=== PATIENT | female | born 1955 | race Caucasian/White ===

== ENCOUNTER 2016-07-03 10:32 | Emergency (ER) ==
[2016-07-03 10:43] VITALS: BP 160/95; TEMP 98.2; BMI 26.5
--- NOTE | 2016-07-03 10:49 | ED.PDOC ---
General ED Provider: Dr. SINDHU AKBAR Chief Complaint: Extremity Pain/Injury Stated Complaint: right axilla pain/abscess Time Seen by Physician: 10:33 (axillary abscess none pointing ) Mode of Arrival: Walk-In Information Source: Patient Exam Limitations: No limitations Primary Care Provider: SINDHU FALL Nursing and Triage Documentation Reviewed and Agree: Yes Skin Complaint Exam - Skin/Soft Tissue Complaint/Exam Symptoms Are: Still present Timing: Constant Initial Severity: Mild Current Severity: Mild Character: Reports: Redness, Swelling, Painful. Denies: Raised Aggravating: Reports: None Alleviating: Reports: None Associated Signs and Symptoms: Denies: Fever, Chills, Itching, Drainage, Bruising, Tenderness, Red streaks, Joint swelling Related History: Denies: Recent trauma, Foreign body, Insect bite/sting, Recent Med change, Prior MRSA/VRE, Recent inpatient, Recent travel, Immunocompromised Related Surgical History: Reports: None Recent Exposure to Others w/Similar Symptoms: No Skin Findings: Present: Pustules Differential Diagnoses: Abscess, MRSA Review of Systems - Review Of Systems Constitutional: Reports: No symptoms Eyes: Reports: No symptoms Ears, Nose, Mouth, Throat: Reports: No symptoms Respiratory: Reports: No symptoms Cardiac: Reports: No symptoms GI: Reports: No symptoms : Reports: No symptoms Musculoskeletal: Reports: No symptoms Skin: Reports: Other (pustule axilla right) Neurological: Reports: No symptoms Endocrine: Reports: No symptoms Hematologic/Lymphatic: Reports: No symptoms All Other Systems: Reviewed and Negative Past Medical History - Past Medical History Previously Healthy: Yes Endocrine: Reports: None Cardiovascular: Reports: None Respiratory: Reports: None Hematological: Reports: None Gastrointestinal: Reports: None Genitourinary: Reports: None Neuro/Psych: Reports: None Musculoskeletal: Reports: None Cancer: Reports: Breast Last Menstrual Period: 7 years ago - Surgical History General Surgical History: Reports: Other (breast) - Family History Family History: Reports: Unknown - Social History Smoking Status: Current every day smoker Hx Substance Use: No Alcohol Screening: None - Immunizations Tetanus Shot up to Date: No Physical Exam - Physical Exam Appearance: Well-appearing, No pain distress, Well-nourished Eyes: CINDY, EOMI, Conjunctiva clear ENT: Ears normal, Nose normal, Oropharynx normal Respiratory: Airway patent, Breath sounds clear, Breath sounds equal, Respirations nonlabored Cardiovascular: RRR, Pulses normal, No rub, No murmur GI/: Soft, Nontender, No masses, Bowel sounds normal, No Organomegaly Musculoskeletal: Normal strength, ROM intact, No edema, No calf tenderness Skin: Warm, Dry (abscess right axilla 1 cm none pointing) Neurological: Sensation intact, Motor intact, Reflexes intact, Cranial nerves intact, Alert, Oriented Psychiatric: Affect appropriate, Mood appropriate Critical Care Note - Critical Care Note Total Time (mins): 0 Course - Course Vital Signs: Temp Pulse Resp BP Pulse Ox 07/03/16 10:33 98.2 F 98 H 18 160/95 H 97 Departure - Departure Time of Disposition: 10:50 (placed on cipro and pain meds 2 photos submitted ) Disposition: HOME SELF-CARE Discharge Problem: Abscess Instructions: Abscess (ED), MRSA (Methicillin Resistant Staphylococcus Aureus) (ED) Condition: Good Pt referred to PMD for follow-up: No Additional Instructions: Please call your Family Physician as soon as possible to schedule a follow-up appointment. you have an abscess in your arm pit this thing is not ready to be cut out if worse like a huge pimple you must see your doctor to have it cut out. see your doctor as soon as you can Allergies/Adverse Reactions: Allergies iodine Adverse Reaction (Verified 05/08/13 07:50) Penicillins Adverse Reaction (Verified 05/08/13 07:50) sulfadiazine sodium Adverse Reaction (Verified 05/08/13 07:50) Home Medications: Ambulatory Orders Buspirone HCl [Buspar] 5 mg PO DAILY 05/08/13 Disposition Discussed With: Patient
== END 2016-07-03 10:55 | disposition home or self-care (01) ==
LOC: ED 10:32
DX: L02.411 Cutaneous abscess of right axilla (principal); F17.210 Nicotine dependence, cigarettes, uncomplicated
CPT/HCPCS: 99282

== ENCOUNTER 2017-11-12 13:21 | Emergency (ER) ==
[2017-11-12 13:35] VITALS: BP 184/106; TEMP 98; BMI 35.7
--- NOTE | 2017-11-12 14:26 | ED.PDOC ---
General ED Provider: Dr. CALI ELDER Chief Complaint: Elbow Pain/Injury Stated Complaint: Severe pain medial aspect Lt Elbow. Unaware of injury. Time Seen by Physician: 14:25 Mode of Arrival: Walk-In Information Source: Patient Exam Limitations: No limitations Primary Care Provider: SINDHU FALL Nursing and Triage Documentation Reviewed and Agree: Yes Reviewed sepsis parameters & appropriate labs ordered?: Yes System Inflammatory Response Syndrome: Not Applicable Sepsis Protocol: For patient's 13 years and over: Temp is 96.8 and below OR 101 and greater Pulse >90 BPM Resp >20/minute Acutely Altered Mental Status Are patient's symptoms suggestive of a new infection, such as: -Pneumonia -Skin, Soft Tissue -Endocarditis -UTI -Bone, Joint Infection -Implantable Device -Acute Abdominal Infection -Wound Infection -Meningitis -Blood Stream Catheter Infection -Unknown Musculoskeletal Complaint Exam - Elbow Pain Complaint/Exam Mechanism of Injury: Reports: No known trauma Symptoms Are: Still present Onset of Pain: Reports: Immediate Initial Severity: Severe Current Severity: Moderate Location: Reports: Diffuse, Radiating Character: Reports: Dull, Aching, Throbbing Alleviating: Reports: Rest, Ice Aggravating: Reports: Movement, Twisting, Pulling Associated Signs and Symptoms: Reports: Swelling Related Surgical History: Reports: None Elbow Findings: Present: Swelling (Markedly painful to exam, decreased ROM to extension, pronation and suppination) Tenderness: Present: Medial Condyle Limited Range of Motion: Present: Extension, Pronation, Supination Differential Diagnoses: Other (Epicondylitis) Review of Systems - Review Of Systems Constitutional: Reports: No symptoms Eyes: Reports: No symptoms Ears, Nose, Mouth, Throat: Reports: No symptoms Respiratory: Reports: No symptoms Cardiac: Reports: No symptoms GI: Reports: No symptoms : Reports: No symptoms Musculoskeletal: Reports: Joint pain, Joint swelling Skin: Reports: No symptoms Neurological: Reports: No symptoms Endocrine: Reports: No symptoms Hematologic/Lymphatic: Reports: No symptoms All Other Systems: Reviewed and Negative Past Medical History - Past Medical History Previously Healthy: Yes Endocrine: Reports: None Cardiovascular: Reports: None Respiratory: Reports: None Hematological: Reports: None Gastrointestinal: Reports: None Genitourinary: Reports: None Neuro/Psych: Reports: None Musculoskeletal: Reports: Joint Pain Cancer: Reports: Breast Last Menstrual Period: post menopausal - Surgical History General Surgical History: Reports: Other (breast) - Family History Family History: Reports: Unknown - Social History Smoking Status: Current every day smoker, Heavy tobacco smoker Hx Substance Use: No Alcohol Screening: None Physical Exam - Physical Exam Appearance: Well-appearing, Well-nourished Ill-appearing: None Pain Distress: Moderate Eyes: CINDY, EOMI, Conjunctiva clear ENT: Ears normal, Nose normal, Oropharynx normal Respiratory: Airway patent, Breath sounds clear, Breath sounds equal, Respirations nonlabored Cardiovascular: RRR, Pulses normal, No rub, No murmur GI/: Soft, Nontender, No masses, Bowel sounds normal, No Organomegaly Musculoskeletal: Normal strength (Tenderness medial epicondyle and adjacent surrounding tissue), ROM intact, No edema, No calf tenderness Skin: Warm, Dry, Normal color Neurological: Sensation intact, Motor intact, Reflexes intact, Cranial nerves intact, Alert, Oriented Psychiatric: Affect appropriate, Mood appropriate Critical Care Note - Critical Care Note Total Time (mins): 0 Course - Course Orders, Labs, Meds: Orders Category Date Time Status Ketorolac Tromethamine [Toradol] MEDS 11/12/17 14:33 Discontinued 30 mg IM ONCE STA ELBOW, LEFT MIN 3 VIEWS Stat RADS 11/12/17 14:32 Taken Medications Discontinued Medications Generic Name Dose Route Start Last Admin Trade Name Freq PRN Reason Stop Dose Admin Ketorolac Tromethamine 30 mg 11/12/17 14:33 11/12/17 14:47 Toradol IM 11/12/17 14:34 30 mg ONCE STA Administration Vital Signs: Temp Pulse Resp BP Pulse Ox 11/12/17 13:22 98.0 F 101 H 20 184/106 H 95 Departure - Departure Time of Disposition: 15:50 Disposition: HOME SELF-CARE Discharge Problem: Medial epicondylitis of left elbow Instructions: Tennis Elbow (ED) Condition: Good Pt referred to PMD for follow-up: Yes IPMP verified?: No Additional Instructions: Obtain brace for lt elbow/ Tennis or Golf Elbow Splint Ice, elevate avoid aggravating activities' Take meds as suggested;;Toradol 10 mg take 1 tablet every 6 hours as needed( no more that total of 5 days of therapy) Follow PCP in next week Allergies/Adverse Reactions: Allergies iodine Adverse Reaction (Verified 11/12/17 13:28) Penicillins Adverse Reaction (Verified 11/12/17 13:28) sulfadiazine sodium Adverse Reaction (Verified 11/12/17 13:28) Home Medications: Ambulatory Orders Ketorolac Tromethamine [Toradol] 10 mg PO Q6H PRN #20 tablet 11/12/17 Disposition Discussed With: Patient
[2017-11-12] MEDS ORDERED: TORADOL IM STA (14:33)
--- NOTE | 2017-11-13 07:48 | DI ---
EXAM: LEFT ELBOW HISTORY: Elbow pain FINDINGS: Left elbow three-view. Bone and joint structures appear normal. There is no joint disloc ation or effusion. No fracture is identified. Bone density and soft tissues are within normal limit s. IMPRESSION: Findings within normal limits.
== END 2017-11-12 16:10 | disposition home or self-care (01) ==
LOC: ED 13:21
DX: M77.02 Medial epicondylitis, left elbow (principal); F17.210 Nicotine dependence, cigarettes, uncomplicated
CPT/HCPCS: 96372; 99282

== ENCOUNTER 2018-08-15 08:56 | Outpatient (CLI) | payer OTHER ==
--- NOTE | 2018-08-15 09:29 | DI ---
EXAM: CHEST FRONTAL AND LATERAL VIEWS HISTORY: Shortness of breath. COMPARISON: 09/04/2010 FINDINGS: Heart size remains within normal limits. There is diffuse, chronic appearing interstitial accentuation. Lungs are hyperinflated and there is relative lucency of the lung zones suggesting pu lmonary emphysema. There are scattered calcifications suggesting old granulomatous disease. No acut e infiltrates are seen. No vascular congestion. There is no consolidation, visible pleural fluid or pneumothorax. Bones reveal no acute fracture. IMPRESSION: Cannot exclude a component chronic obstructive pulmonary disease, correlate clinically No acute cardiopulmonary process.
== END 2018-08-15 08:57 | disposition home or self-care (01) ==
LOC: RAD 08:56
PROVIDERS: ATTEND Family Medicine
DX: R09.89 Other specified symptoms and signs involving the circulatory and respiratory systems (principal)

== ENCOUNTER 2018-11-26 12:30 | Emergency (ER) ==
[2018-11-26 12:34] VITALS: BP 183/120; TEMP 98; BMI 38.2
--- NOTE | 2018-11-26 13:43 | US ---
EXAM: Right lower extremity venous Doppler History: Right lower extremity pain and edema. Technique: Multiple sonographic images through the right lower extremity were obtained. Color duple x Doppler was used to interrogate vascular flow. Findings: The right common femoral, greater saphenous, profunda, superficial femoral, popliteal, per morelos, posterior tibial and anterior tibial veins demonstrate spontaneous flow with normal compressio n and normal augmentation. Impression: No sonographic evidence for deep venous thrombosis
--- NOTE | 2018-11-26 13:58 | CT ---
EXAM: CT of the right knee without contrast History: Lateral and posterior right knee pain. Technique: Multiplanar CT images through the right knee were obtained without the administration of IV contrast Findings: Osteopenia. No acute fracture or dislocation. Mild tricompartmental joint space narrowin g with tiny osteophytes. Small knee joint effusion. No Lorenzo's cyst. No abnormal calcifications or radiopaque foreign bodies. No soft tissue hematomas. Impression: 1. No acute osseous abnormality. 2. Mild tricompartmental arthritis. 3. Small knee joint effusion. 4. Osteopenia
--- NOTE | 2018-11-26 14:05 | ED.PDOC ---
General ED Provider: Dr. SINDHU AKBAR Chief Complaint: Knee Pain/Injury Stated Complaint: Right knee pain extended to back of the knee with no stated injury Time Seen by Physician: 12:30 Mode of Arrival: Walk-In Information Source: Patient Exam Limitations: No limitations Primary Care Provider: TRUMAN DUMONT Nursing and Triage Documentation Reviewed and Agree: Yes Does patient meet sepsis criteria?: No System Inflammatory Response Syndrome: Not Applicable Sepsis Protocol: For patient's 13 years and over: Temp is 96.8 and below OR 101 and greater Pulse >90 BPM Resp >20/minute Acutely Altered Mental Status Are patient's symptoms suggestive of a new infection, such as: -Pneumonia -Skin, Soft Tissue -Endocarditis -UTI -Bone, Joint Infection -Implantable Device -Acute Abdominal Infection -Wound Infection -Meningitis -Blood Stream Catheter Infection -Unknown Musculoskeletal Complaint Exam - Knee Pain Complaint/Exam Mechanism of Injury: Reports: No known trauma Onset/Duration: chronic issue worsening today Symptoms Are: Still present Onset of Pain: Reports: Hours Initial Severity: Moderate Current Severity: Moderate Location: Reports: Discrete (behind the right knee) Character: Reports: Aching, Spasmodic Alleviating: Reports: Rest, Position Aggravating: Reports: Movement Associated Signs and Symptoms: Denies: Swelling, Redness, Bruising, Fever, Weakness, Numbness, Tingling Able to Bear Weight: Yes Related History: Reports: Similar episode Septic Arthritis Risk Factors: Reports: Extremes of age Gout Risk Factors: Reports: >40 years old Knee Findings: Absent: Swelling, Ecchymosis, Abnormal contour, Rotation, Ligamentous instability, Laceration, Erythema, Warmth, Blisters, Other joint pain, Foreign body, Tenderness, Limited range of motion, Effusion Tenderness: Present: Pre-patellar Mikhail Test Positive: No Jamaal Test Positive: No Limited Range of Motion: Present: Active Differential Diagnoses: DVT, Closed Fracture, Internal Derangement, Sprain, Strain Review of Systems - Review Of Systems Constitutional: Reports: No symptoms Eyes: Reports: No symptoms Ears, Nose, Mouth, Throat: Reports: No symptoms Respiratory: Reports: No symptoms Cardiac: Reports: No symptoms GI: Reports: No symptoms : Reports: No symptoms Musculoskeletal: Reports: Joint pain (right knee) Skin: Reports: No symptoms Neurological: Reports: No symptoms Endocrine: Reports: No symptoms Hematologic/Lymphatic: Reports: No symptoms All Other Systems: Reviewed and Negative Past Medical History - Past Medical History Previously Healthy: Yes Endocrine: Reports: None Cardiovascular: Reports: None Respiratory: Reports: None Hematological: Reports: None Gastrointestinal: Reports: None Genitourinary: Reports: None Neuro/Psych: Reports: None Musculoskeletal: Reports: Joint Pain Cancer: Reports: Breast Last Menstrual Period: no - Surgical History General Surgical History: Reports: Other (breast) - Family History Family History: Reports: Unknown - Social History Smoking Status: Current every day smoker, Heavy tobacco smoker Hx Substance Use: No Alcohol Screening: None - Immunizations Tetanus Shot up to Date: No Physical Exam - Physical Exam Appearance: Well-appearing, No pain distress, Well-nourished Eyes: CINDY, EOMI, Conjunctiva clear ENT: Ears normal, Nose normal, Oropharynx normal Respiratory: Airway patent, Breath sounds clear, Breath sounds equal, Respirations nonlabored Cardiovascular: RRR, Pulses normal, No rub, No murmur GI/: Soft, Nontender, No masses, Bowel sounds normal, No Organomegaly Musculoskeletal: Limited ROM (right knee) Skin: Warm, Dry, Normal color Neurological: Sensation intact, Motor intact, Reflexes intact, Cranial nerves intact, Alert, Oriented Psychiatric: Affect appropriate, Mood appropriate Interpretation - Radiology Interpretation Radiology Interpretation By: Radiologist Radiology Results: No acute changes (negative DVT) Critical Care Note - Critical Care Note Total Time (mins): 0 Course - Course Orders, Labs, Meds: Lab Review 11/26/18 12:57 Uric Acid 4.67 Orders Category Date Time Status URIC ACID Stat LAB 11/26/18 12:[address] KNEE RIGHT WITHOUT CONTRAST Stat RADS 11/26/18 12:47 Completed U/S VENOUS SCAN RT LEG Stat RADS 11/26/18 12:50 Completed Vital Signs: Temp Pulse Resp BP Pulse Ox 11/26/18 12:30 98.0 F 114 H 20 183/120 H 97 Departure - Departure Time of Disposition: 14:07 Disposition: HOME SELF-CARE Discharge Problem: Knee pain Instructions: Knee Pain (ED) Condition: Good Pt referred to PMD for follow-up: Yes IPMP verified?: No Additional Instructions: Please call your Family Physician as soon as possible to schedule a follow-up appointment. Please see your doctor. No blood clot noted on the ultrasound of the leg and no fractures found. You will best be served with an MRI of the knee. Prescriptions: Hydrocodone Bit/Acetaminophen [Rickman 10-325] 1 each PO Q6HR #14 tablet Allergies/Adverse Reactions: Allergies shellfish derived Allergy (Severe, Verified 11/26/18 12:44) Difficulty Breathing required ER visit iodine Adverse Reaction (Verified 11/26/18 12:44) Penicillins Adverse Reaction (Verified 11/26/18 12:44) sulfadiazine sodium Adverse Reaction (Verified 11/26/18 12:44) Home Medications: Ambulatory Orders Hydrocodone Bit/Acetaminophen [Rickman 10-325] 1 each PO Q6HR #14 tablet 11/26/18 Disposition Discussed With: Patient, Family
== END 2018-11-26 14:30 | disposition home or self-care (01) ==
LOC: ED 12:30
DX: M25.561 Pain in right knee (principal); F17.210 Nicotine dependence, cigarettes, uncomplicated
CPT/HCPCS: 36415; 84550; 99282

== ENCOUNTER 2019-01-16 | Emergency (ER) | END 2019-01-16 12:36 | disposition short-term general hospital (02) | CPT/HCPCS: 36415; 80053; 82550; 82553; 82803; 84484; 85025; 85379; 93005; 93010; 94640; 96361; 96374; 99285 ==